=== PATIENT | female | born 1940 | race Caucasian/White ===

== ENCOUNTER 2022-03-16 13:28 | Outpatient (CLI) | payer MEDICARE, SELFPAY ==
[2022-03-16 15:03] LABS: Chloride* 99 mmol/L (96-114); Potassium* 4.7 mmol/L (3.6-5.1); Sodium* 135 mmol/L (135-149)
[2022-03-16 15:05] LABS: Creatinine* 0.9 mg/dL (0.5-1.5); Estimated Glomerular Filt Rate 64 ml/min
[2022-03-16 15:06] LABS: Blood Urea Nitrogen* 15 mg/dL (7-30); Calcium* 9.3 mg/dL (8.4-10.6); Carbon Dioxide* 30 mmol/L (20-32); Glucose* 97 mg/dL (60-115)
[2022-03-16 15:42] LABS: TSH With Reflex to FT4* < 0.015 uIU/mL (0.270-4.200)
[2022-03-16 16:19] LABS: Free T4 Free Thyroxine* 2.37 ng/dL (0.70-1.85)
== END 2022-03-16 13:29 | disposition home or self-care (01) ==
PROVIDERS: PCP Family Medicine; Visit Provider Family Medicine
DX: I10 Essential (primary) hypertension (principal); E03.9 Hypothyroidism, unspecified
CPT/HCPCS: 80048; 84439; 84443

== ENCOUNTER 2022-06-23 07:48 | Outpatient (CLI) | payer MEDICARE, SELFPAY ==
[2022-06-23 10:23] LABS: TSH With Reflex to FT4* < 0.015 uIU/mL (0.270-4.200)
[2022-06-23 10:51] LABS: Free T4 Free Thyroxine* 2.26 ng/dL (0.70-1.85)
== END 2022-06-23 07:49 | disposition home or self-care (01) ==
PROVIDERS: PCP Family Medicine; Visit Provider Family Medicine
DX: E03.9 Hypothyroidism, unspecified (principal)
CPT/HCPCS: 84439; 84443

== ENCOUNTER 2022-08-25 14:12 | Outpatient (CLI) | payer MEDICARE, SELFPAY | END 2022-08-25 14:13 | disposition home or self-care (01) | LOC: FRMREF 14:14 | PROVIDERS: PCP Family Medicine; Visit Provider Dermatology | DX: Z00.00 Encounter for general adult medical examination without abnormal findings (principal); I10 Essential (primary) hypertension; E03.9 Hypothyroidism, unspecified; Z51.81 Encounter for therapeutic drug level monitoring | CPT/HCPCS: 80053 ==

== ENCOUNTER 2022-09-11 13:10 | Outpatient (CLI) | payer MEDICARE, SELFPAY ==
--- NOTE | 2022-09-11 13:20 | CRLHL7_ITS ---
For Patients: As a result of the Century Cures Act, medical imaging exams and procedure reports are released immediately into your electronic medical record. You may view this report before your referring provider. If you have questions, please contact your health care provider. BILATERAL SCREENING MAMMOGRAM WITH COMPUTER-AIDED DETECTION TECHNIQUE: CC and MLO views were obtained. These mammographic images have been obtained using full-field digital technique. These mammographic images were interpreted with the benefit of computer-aided detection. COMPARISON FILM: 07/14/21, 03/07/20, 08/24/18. FINDINGS: There are scattered areas of fibroglandular density IMPRESSION: There is no radiographic evidence for malignancy. ASSESSMENT: BI-RADS Category 1: Negative RECOMMENDATION: Routine screening mammogram in 1 year. A lay language report of this examination will be provided to the patient. Gena Marcelino M.D. Diagnostic/Breast Radiologist [email or web address] Transcribed: 2:17 p.[email or web address] [email or web address]/Dictated by: Gena Marcelino MD @ 09/14/2022 8:25:00 AM (Electronically Signed)
== END 2022-09-11 13:11 | disposition home or self-care (01) ==
LOC: MAMMO 13:12
PROVIDERS: PCP Family Medicine; Visit Provider Registered Nurse
DX: Z12.31 Encounter for screening mammogram for malignant neoplasm of breast (principal)
CPT/HCPCS: 77067

== ENCOUNTER 2022-11-04 14:05 | Outpatient (CLI) | payer MEDICARE, SELFPAY | END 2022-11-04 14:06 | disposition home or self-care (01) | LOC: NFLDREF 11-05 00:43 | PROVIDERS: PCP Family Medicine; Referring Provider Family Medicine; Visit Provider Family Medicine | DX: E03.9 Hypothyroidism, unspecified (principal); I10 Essential (primary) hypertension | CPT/HCPCS: 80048; 84439; 84443 ==

== ENCOUNTER 2023-01-22 11:34 | Outpatient (CLI) | payer MEDICARE, SELFPAY | END 2023-01-22 11:35 | disposition home or self-care (01) | LOC: NFLDREF 01-24 07:49 | PROVIDERS: PCP Family Medicine; Referring Provider Family Medicine; Visit Provider Family Medicine | DX: E03.9 Hypothyroidism, unspecified (principal) | CPT/HCPCS: 84439; 84443 ==

== ENCOUNTER 2023-04-23 10:23 | Outpatient (CLI) | payer MEDICARE, SELFPAY | END 2023-04-23 10:24 | disposition home or self-care (01) | LOC: NFLDREF 04-26 06:28 | PROVIDERS: PCP Family Medicine; Referring Provider Family Medicine; Visit Provider Family Medicine | DX: E03.9 Hypothyroidism, unspecified (principal); I10 Essential (primary) hypertension | CPT/HCPCS: 80048; 84443 ==

== ENCOUNTER 2023-06-10 08:40 | Outpatient (CLI) | payer MEDICARE, SELFPAY | END 2023-06-10 08:41 | disposition home or self-care (01) | LOC: NFLDREF 06-14 12:09 | PROVIDERS: PCP Family Medicine; Referring Provider Family Medicine; Visit Provider Family Medicine | DX: E03.9 Hypothyroidism, unspecified (principal) | CPT/HCPCS: 84443 ==

== ENCOUNTER 2023-06-28 10:28 | Emergency (ER) | payer MEDICARE, SELFPAY ==
[2023-06-28 10:45] VITALS: BP 144/83; PULSE 67; TEMP 36.6; O2SAT 97; BMI 20.7
--- NOTE | 2023-06-28 13:12 | CRLHL7_ITS ---
For Patients: As a result of the Century Cures Act, medical imaging exams and procedure reports are released immediately into your electronic medical record. You may view this report before your referring provider. If you have questions, please contact your health care provider. INDICATION: Fall, head injury TECHNIQUE: CT head without contrast. COMPARISON: None. FINDINGS: CSF spaces: Within normal limits for age. Brain parenchyma: The ruiz-white differentiation is normal. No sign of mass, hemorrhage, or midline shift. Calcification of the basal ganglia. Mild low-density in the deep white matter. Old right cerebellar lacunar infarct. Skull base and calvarium: Mucosal thickening and patchy opacification paranasal sinuses. Atherosclerosis. The visualized orbits are grossly unremarkable. No skull fractures. IMPRESSION: 1. No calvarial fracture or intracranial bleed. 2. Nonspecific white matter disease, likely microangiopathy. 3. Old right cerebellar lacunar infarct. Please note that all CT scans at this facility use dose modulation, iterative reconstruction, and/or weight-based dosing when appropriate to reduce radiation dose to as low as reasonably achievable. Dictated by Kwesi Munoz MD @ 06/28/2023 2:22:37 PM (Electronically Signed)
--- NOTE | 2023-06-28 13:13 | CRLHL7_ITS ---
For Patients: As a result of the Cures Act, medical imaging exams and procedure reports are released immediately into your electronic medical record. You may view this report before your referring provider. If you have questions, please contact your health care provider. INDICATION: Fall, head injury TECHNIQUE: CT cervical spine without contrast. COMPARISON: None FINDINGS: Vertebrae: Alignment is normal. There are no fractures or suspicious bony lesions. Discs and facet joints: Facet hypertrophy C2-3 without significant stenosis. Facet hypertrophy C3-4 with disc space narrowing causing mild bilateral foraminal stenosis. Facet hypertrophy with posterior osteophytes and disc space narrowing at C4-5 causing mild left foraminal stenosis. Facet hypertrophy with posterior osteophytes and disc space narrowing at C5-6 causing moderate right foraminal stenosis. Facet hypertrophy with small posterior osteophytes that C6-7 causing mild bilateral foraminal stenosis. Facet hypertrophy C7-T1 without significant stenosis. Extraspinal findings: Mild apical pleural parenchymal scarring on the right. Atherosclerosis. IMPRESSION: Multilevel degenerative changes cervical spine without evidence of cervical spine fracture. Please note that all CT scans at this facility use dose modulation, iterative reconstruction, and/or weight-based dosing when appropriate to reduce radiation dose to as low as reasonably achievable. Dictated by Kwesi Munoz MD @ 06/28/2023 2:35:17 PM (Electronically Signed)
--- NOTE | 2023-06-28 13:13 | CRLHL7_ITS ---
For Patients: As a result of the Cures Act, medical imaging exams and procedure reports are released immediately into your electronic medical record. You may view this report before your referring provider. If you have questions, please contact your health care provider. Indication: Cough Technique: Chest 2 views Comparison: Chest x-ray 09/10/2022 Findings/Impression: Cardiovascular and mediastinum: Normal heart size with mild aortic tortuosity and atherosclerotic calcification. Lungs and pleural spaces: No pleural effusion or pneumothorax. Slight hazy opacity in the right mid lung suspicious for pneumonia including viral pneumonia. Bones and soft tissues: No significant findings. Dictated by Kwesi Munoz MD @ 06/28/2023 2:14:36 PM (Electronically Signed)
[2023-06-28] MEDS: 0.9 % SODIUM CHLORIDE 1000 ml 1,000 ML IV ×2 (13:30→15:14)
[2023-06-28 14:13] LABS: Basophils Absolute Auto 0.04 K/uL (0.00-0.30); Basophils Percent Auto 0.7 % (0.0-3.0); Eosinophils Absolute Auto 0.02 K/uL (0.00-0.50); Eosinophils Percent Auto 0.4 % (0.0-7.0); Hematocrit 41.4 % (33.0-51.0); Hemoglobin* 14.2 gm/dL (12.0-16.0); Lymphocytes Absolute Auto 2.26 K/uL (0.90-2.90); Lymphocytes Percent Auto 41.9 % (20-44); Mean Corpuscular HGB Conc 34 gm/dL (32-36); Mean Corpuscular Hemoglobin 32 pg (26-34); Mean Corpuscular Volume 93 fL (80-100); Monocytes Percent Auto 7.2 % (0.0-11.0); Neutrophils Absolute Auto 2.69 K/uL (1.7-7.0); Neutrophils Percent Auto 49.8 % (42.0-72.0); Platelet Count* 186 K/uL (140-440); RDW Coefficient of Variation % 12.3 % (11.5-15.5); Red Blood Count 4.46 m/uL (4.00-5.20)
[2023-06-28 14:19] LABS: Slide Review Reflex No
[2023-06-28 14:25] LABS: Troponin, Point-of-Care* 0.01 ng/ml (0.01-0.04)
[2023-06-28 14:30] LABS: Chloride* 100 mmol/L (96-114); Sodium* 133 mmol/L (135-149)
[2023-06-28 14:31] LABS: Potassium* 3.9 mmol/L (3.6-5.1)
--- NOTE | 2023-06-28 14:32 | ED.HEATRA ---
HPI - Head Injury General Date Seen: 06/28/23 Chief complaint: Head Injury/Pain Stated complaint: Fell yesterday, head injury, LoC Time Seen by Provider: 06/28/23 12:51 Source: patient Mode of arrival: ambulatory Limitations: no limitations History of Present Illness HPI Narrative: Patient is a very nice 83-year-old female who lives independently, was dropped off from a friend, she tested positive for influenza last week, and was feeling very weak, she actually passed out hit her head yesterday, and then thought she should come to the emergency room today or more appropriately her friends thought she should come here. She tells me she has slowly been improving, her weakness is improving her cough is been improving she has had no fevers for the last few days, and otherwise feels pretty good. She denies any nausea vomiting, any blood in her stools, and is eating more now than she was before. She did not take Tamiflu. Denies any shortness of breath, any chest pain, she has no headache really, she has no numbness and tingling weakness in the hands the feet and there is no neck pain associated with this she denies any visual changes. MD Complaint: head injury Related Data Home Medications Medication Instructions Recorded Confirmed calcium carbonate 200 mg calcium 200 mg PO BID 03/03/22 06/28/23 (500 mg) chewable tablet (Antacid (calcium carbonate)) cyanocobalamin (vitamin B-12) 250 250 mcg PO BID 03/03/22 06/28/23 mcg lozenges ergocalciferol (vitamin D2) 10 mcg 400 unit feeding tube DAILY 03/03/22 06/28/23 (400 unit) tablet omega-3 acid ethyl esters 1 gram 1 cap PO QDAY 03/03/22 06/28/23 capsule fluorouracil 5 % topical cream 1 applic topical BID PRN 11/04/22 06/28/23 triamcinolone acetonide 0.1 % 1 applic topical BID PRN 11/04/22 06/28/23 topical cream magnesium oxide 400 mg (241.3 mg 400 mg PO DAILY 04/27/23 06/28/23 magnesium) tablet Previous Rx's Medication Instructions Recorded estradiol 0.01% (0.1 mg/gram) 0.5 g vaginal 2XW #42.5 grams 09/03/22 vaginal cream (Estrace) amlodipine 2.5 mg tablet 2.5 mg PO QDAY #90 tabs 04/27/23 levothyroxine 75 mcg tablet 75 - 150 mcg (1 - 2 x 75 mcg) PO 06/20/23 QDAY #105 tabs amoxicillin 875 mg-potassium 1 tab PO BID #14 tabs 06/28/23 clavulanate 125 mg tablet Allergies Allergy/AdvReac Type Severity Reaction Status Date / Time No Known Drug Allergies Allergy Verified 06/28/23 10:45 Review of Systems Status of ROS: Reports: 10 or more systems reviewed and unremarkable except as noted in History and below [facility] Medical History Lyme disease ?A69.20 - Lyme disease, unspecified (ICD-10) Encounter for methotrexate monitoring ?Z51.81 - Encounter for therapeutic drug level monitoring (ICD-10) ?Z79.631 - [facility]PC (current) use of antimetabolite agent (ICD-10) Family History Father Diabetes Family/Other Diabetes Heart disease Social History What is your current living situation?: I presently have a place to live Problems where you live: declined to answer In the past 12 months, utilities in danger of being shut off: declined to answer In past 12 months, lack of transportation kept you from medical appts, meetings, work, or getting things needed for daily living: no In the past 12 mos, have been you worried that your food would run out before you had money to buy more?: never true In the past 12 mos, the food you bought just didn't last and you didn't have money to buy more?: never true Smoking Status: Never smoker Do you use any of these nicotine containing products: None How often do you have a drink containing alcohol: never How often do you have six or more drinks on one occasion: Never AUDIT-C Alcohol total score: 0 Non-prescribed substance use: denies use How often does anyone, including family, friends and others, physically hurt you: never How often does anyone, including family, friends and others, insult or talk down to you: never How often does anyone, including family, friends and others, threaten you with harm: never How often does anyone, including family, friends and others, scream or curse at you: never Little interest or pleasure in doing things: not at all Feeling down, depressed, or hopeless: not at all service: No Exam Narrative: Exam Narrative: She is seen in room 7 she is in no apparent distress, speaking to me normally her pupils equal round reactive to light there is no scleral icterus redness there is no nystagmus her TMs bilaterally are normal oropharynx is normal. On the upper occipital on the right side very small laceration of approximately 1-2 cm is not gaping, and is dried. No other depression is noted her cervical spine has no tenderness to palpation, range of motion seems good. There is no evidence of any problems with rotation. Chest is good air entry bilaterally with no wheezing crackles noted heart sounds are normal her abdomen is soft no guarding there is no organomegaly. 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 And a head CT look good in then when I cleaned upper head wound there is really nothing coming up part there, was more of a scratch type situation. She may also have a concussion we went over signs symptoms of worsening, and she will come back and be seen. I do want her to have a road test before she leaves however. Vital Signs Vital signs: Initial Vital Signs Temperature 97.8 F 06/28/23 10:45 Temperature Source Temporal Artery Scan 06/28/23 10:45 Pulse Rate 67 06/28/23 10:45 Pulse Rhythm Regular 06/28/23 10:45 Pulse Strength 3+ Normal 06/28/23 10:45 Blood Pressure 144/83 H 06/28/23 10:45 Blood Pressure Mean 103 06/28/23 10:45 Blood Pressure Position Sitting 06/28/23 10:45 Pulse Oximetry 97 06/28/23 10:45 Oxygen Delivery Method Room Air 06/28/23 10:45 Vital Signs Temperature 97.8 F 06/28/23 10:45 Pulse Rate 67 06/28/23 10:45 Blood Pressure 144/83 H 06/28/23 10:45 Pulse Oximetry 97 06/28/23 10:45 Oxygen Delivery Method Room Air 06/28/23 10:45 Temperature 97.8 F 06/28/23 10:45 Pulse Rate 67 06/28/23 10:45 Blood Pressure 144/83 H 06/28/23 10:45 Pulse Oximetry 97 06/28/23 10:45 Oxygen Delivery Method Room Air 06/28/23 10:45 Medications Administered Medications: Discontinued Medications Generic Name Dose Route Start Last Admin Trade Name Freq PRN Reason Stop Dose Admin Sodium Chloride 1,000 mls @ 1,000 mls/hr 06/28/23 13:15 06/28/23 15:13 0.9 % Sodium Chloride 1000 Ml IV 06/28/23 14:14 Infused .Q1H JOHN Infusion Sodium Chloride 1,000 mls @ 1,000 mls/hr 06/28/23 14:45 06/28/23 15:14 0.9 % Sodium Chloride 1000 Ml IV 06/28/23 15:44 1,000 mls/hr .Q1H JOHN Administration Lidocaine/Epinephrine/Tetracaine 3 ml 06/28/23 14:40 06/28/23 15:14 Lidocaine/Epinep/Tetracaine 3 Ml Gel..Ml. TOPICAL 06/28/23 14:41 3 ml ONCE ONE Administration MDM - Head Injury MDM Narrative Medical decision making narrative: Life-threatening differential diagnosis is considered include: Subarachnoid hemorrhage, subdural hemorrhage, epidural hemorrhage. Other differential diagnosis considered include concussion, closed head injury, or neck fracture. Life-threatening differential diagnosis considered include: Cardiac arrhythmia, acute blood loss, and intracranial bleed. Other differential diagnosis include but are not limited to vasovagal syncope, orthostatic syncope, seizure, as well as other etiologies Medical Records Attestation: I reviewed the patient's medical records. Lab Data Attestation: I reviewed the patient's lab results. Labs: Lab Results 06/28/23 06/28/23 Range/Units 13:13 13:40 WBC 5.40 (4.50-11.00) K/uL RBC 4.46 (4.00-5.20) m/uL Hgb 14.2 (12.0-16.0) gm/dL Hct 41.4 (33.0-51.0) % MCV 93 (80-100) fL MCH 32 (26-34) pg MCHC 34 (32-36) gm/dL RDW Coeff of Matthew 12.3 (11.5-15.5) % Plt Count 186 (140-440) K/uL Neut % (Auto) 49.8 (42.0-72.0) % Lymph % (Auto) 41.9 (20-44) % Williamson % (Auto) 7.2 (0.0-11.0) % Eos % (Auto) 0.4 (0.0-7.0) % Baso % (Auto) 0.7 (0.0-3.0) % Neut # (Auto) 2.69 (1.7-7.0) K/uL Lymph # (Auto) 2.26 (0.90-2.90) K/uL Williamson # (Auto) 0.40 (0.00-0.90) K/UL Eos # (Auto) 0.02 (0.00-0.50) K/uL Baso # (Auto) 0.04 (0.00-0.30) K/uL Abs Immat Gran (auto) 0.00 (0.00-0.30) K/uL Imm/Tot Granulo (auto) 0.0 % D-Dimer Quant (PE/DVT) 0.46 (0.00-0.50) ug/ml Sodium 133 L (135-149) mmol/L Potassium 3.9 (3.6-5.1) mmol/L Chloride 100 (96-114) mmol/L Carbon Dioxide 24 (20-32) mmol/L Anion Gap 9 (7-15) mEq/L BUN 16 (7-30) mg/dL Creatinine 0.7 (0.5-1.5) mg/dL Estimated Creat Clear 35.26 Estimated GFR 86 ml/min Glucose 113 (60-115) mg/dL Calcium 8.6 (8.4-10.6) mg/dL Lipase 162 (23-300) U/L POC Troponin I 0.01 (0.01-0.04) ng/ml Imaging Data CT scan - head: Radiologist's impression: Patient: ALEXANDR CROSS Facility:?[facility] Patient ID:?[id number] Site Patient ID:?[id number]. Site :?[id number] Study:?XRay Chest 2 VIEW-06/28/2023 1:59:13 PM Ordering Physician:Flip Mace Final Report: Indication: Cough Technique: Chest 2 views Comparison: Chest x-ray 09/10/2022 Findings/Impression: Cardiovascular and mediastinum: Normal heart size with mild aortic tortuosity and atherosclerotic calcification. Lungs and pleural spaces: No pleural effusion or pneumothorax. Slight hazy opacity in the right mid lung suspicious for pneumonia including viral pneumonia. Bones and soft tissues: No significant findings. Dictated by Kwesi Munoz MD @ 06/28/2023 2:14:36 PM (Electronic Signature) atient: ALEXANDR CROSS Facility:?[facility] Patient ID:?[id number] Site Patient ID:?[id number]. Site :?[id number] Study:?CT Spine Cervical -06/28/2023 1:57:43 PM Ordering Physician:Flip Mace Final Report: INDICATION: Fall, head injury TECHNIQUE: CT cervical spine without contrast. COMPARISON: None FINDINGS: Vertebrae: Alignment is normal. There are no fractures or suspicious bony lesions. Discs and facet joints: Facet hypertrophy C2-3 without significant stenosis. Facet hypertrophy C3-4 with disc space narrowing causing mild bilateral foraminal stenosis. Facet hypertrophy with posterior osteophytes and disc space narrowing at C4-5 causing mild left foraminal stenosis. Facet hypertrophy with posterior osteophytes and disc space narrowing at C5-6 causing moderate right foraminal stenosis. Facet hypertrophy with small posterior osteophytes that C6-7 causing mild bilateral foraminal stenosis. Facet hypertrophy C7-T1 without significant stenosis. Extraspinal findings: Mild apical pleural parenchymal scarring on the right. Atherosclerosis. IMPRESSION: Multilevel degenerative changes cervical spine without evidence of cervical spine fracture. Please note that all CT scans at this facility use dose modulation, iterative reconstruction, and/or weight-based dosing when appropriate to reduce radiation dose to as low as reasonably achievable. Dictated by Kwesi Munoz MD @ 06/28/2023 2:35:17 PM (Electronic Signature) Patient: ALEXANDR CROSS Facility:?[facility] Patient ID:?[id number] Site Patient ID:?[id number]. Site :?[id number] Study:?CT Head W/O-06/28/2023 1:57:19 PM Ordering Physician:Flip Mace Final Report: INDICATION: Fall, head injury TECHNIQUE: CT head without contrast. COMPARISON: None. FINDINGS: CSF spaces: Within normal limits for age. Brain parenchyma: The ruiz-white differentiation is normal. No sign of mass, hemorrhage, or midline shift. Calcification of the basal ganglia. Mild low-density in the deep white matter. Old right cerebellar lacunar infarct. Skull base and calvarium: Mucosal thickening and patchy opacification paranasal sinuses. Atherosclerosis. The visualized orbits are grossly unremarkable. No skull fractures. IMPRESSION: 1. No calvarial fracture or intracranial bleed. 2. Nonspecific white matter disease, likely microangiopathy. 3. Old right cerebellar lacunar infarct. Please note that all CT scans at this facility use dose modulation, iterative reconstruction, and/or weight-based dosing when appropriate to reduce radiation dose to as low as reasonably achievable. Dictated by Kwesi Munoz MD @ 06/28/2023 2:22:37 PM (Electronic Signature) ECG Data Attestation: I personally reviewed and interpreted this ECG as follows: ECG interpretation date: 06/28/23 Interpretation: EKG shows normal sinus rhythm, mild bradycardia noted at 56, no acute ST wave changes Discharge Plan Discharge Clinical Impression: Laceration, Head injury, Influenza, Pneumonia, Fall Patient Disposition: Home w/ Parent or Adult Condition: Stable Instructions: Influenza (DC), Fall Prevention for Older Adults (ED), Fall Prevention (ED), Pneumonia (ED), Head Laceration (ED) Additional Instructions: Home rest fluids and antibiotics as directed, return if signs and symptoms of worsening, light activity Activity Level: Light activity Prescriptions: New amoxicillin-pot clavulanate 875-125 mg tablet 1 tab PO BID Qty: 14 0RF No Action ergocalciferol (vitamin D2) 10 mcg (400 unit) tablet 400 unit feeding tube DAILY calcium carbonate [Antacid (calcium carbonate)] 200 mg calcium (500 mg) tablet,chewable 200 mg PO BID cyanocobalamin (vitamin B-12) 250 mcg lozenge 250 mcg PO BID omega-3 acid ethyl esters 1 gram capsule 1 cap PO QDAY triamcinolone acetonide 0.1 % cream 1 applic topical BID PRN Rx Instructions: Apply topically to affected area twice daily as needed. magnesium oxide 400 mg (241.3 mg magnesium) tablet 400 mg PO DAILY fluorouracil 5 % cream 1 applic topical BID PRN Rx Instructions: Apply topically to affected area one day per week. amlodipine 2.5 mg tablet 2.5 mg PO QDAY Qty: 90 3RF estradiol [Estrace] 0.01 % (0.1 mg/gram) cream 0.5 g vaginal 2XW Qty: 42.5 3RF Rx Instructions: Use nightly for 2 weeks, then twice weekly. May apply with finger. levothyroxine 75 mcg tablet 75 - 150 mcg PO QDAY Qty: 105 3RF Rx Instructions: Take 150mcg wednesday, and 75mcg all other days. Follow Up/Referrals: Sonido Hua MD [Primary Care Provider] - Stand Alone Forms: [employer] Info Instructions
[2023-06-28 14:33] LABS: Anion Gap 9 mEq/L (7-15); Carbon Dioxide* 24 mmol/L (20-32); Creatinine* 0.7 mg/dL (0.5-1.5); Est. Creatinine Clearance* 35.26; Estimated Glomerular Filt Rate 86 ml/min
[2023-06-28 14:34] LABS: Blood Urea Nitrogen* 16 mg/dL (7-30); Calcium* 8.6 mg/dL (8.4-10.6); Glucose* 113 mg/dL (60-115); Lipase* 162 U/L (23-300)
[2023-06-28 14:40] LABS: D Dimer Quantitative* 0.46 ug/ml (0.00-0.50)
[2023-06-28 15:06] VITALS: O2SAT 96
[2023-06-28 15:10] VITALS: O2SAT 96
[2023-06-28] MEDS: LIDOCAINE/EPINEP/TETRACAINE 3 ML GEL..ML. TOPICAL (15:14)
[2023-06-28 15:20] VITALS: O2SAT 97
== END 2023-06-28 17:17 | disposition home or self-care (01) ==
PROVIDERS: Emergency Provider Family Medicine; PCP Family Medicine
DX: J09.X2 Influenza due to identified novel influenza A virus with other respiratory manifestations (principal); J18.9 Pneumonia, unspecified organism; W19.XXXA Unspecified fall, initial encounter; S01.91XA Laceration without foreign body of unspecified part of head, initial encounter
CPT/HCPCS: 36415; 70450; 71046; 72125; 80048; 83690; 84484; 85025; 85379; 93005; 99284; 99285; J7030

== ENCOUNTER 2023-07-02 12:05 | Emergency (ER) | payer MEDICARE, SELFPAY ==
[2023-07-02 12:15] VITALS: BP 150/82; PULSE 123; RESP 16; TEMP 36.1; O2SAT 100; BMI 20.7
[2023-07-02 12:53] VITALS: BP 108/73; BP 130/81; BP 131/84; PULSE 60; PULSE 68; PULSE 71
[2023-07-02 13:09] LABS: Basophils Absolute Auto 0.05 K/uL (0.00-0.30); Basophils Percent Auto 0.7 % (0.0-3.0); Eosinophils Percent Auto 2.9 % (0.0-7.0); Hematocrit 41.3 % (33.0-51.0); Hemoglobin* 14.2 gm/dL (12.0-16.0); Immature Granulocytes Abs Auto 0.01 K/uL (0.00-0.30); Immature Granulocytes Pct Auto 0.1 %; Lymphocytes Absolute Auto 2.06 K/uL (0.90-2.90); Lymphocytes Percent Auto 30.2 % (20-44); Mean Corpuscular HGB Conc 34 gm/dL (32-36); Mean Corpuscular Hemoglobin 32 pg (26-34); Mean Corpuscular Volume 94 fL (80-100); Monocytes Percent Auto 8.6 % (0.0-11.0); Neutrophils Absolute Auto 3.92 K/uL (1.7-7.0); Neutrophils Percent Auto 57.5 % (42.0-72.0); Platelet Count* 254 K/uL (140-440); RDW Coefficient of Variation % 12.5 % (11.5-15.5); Red Blood Count 4.41 m/uL (4.00-5.20); White Blood Count* 6.83 K/uL (4.50-11.00)
[2023-07-02 13:11] LABS: Slide Review Reflex No
[2023-07-02 13:21] LABS: Chloride* 100 mmol/L (96-114)
[2023-07-02 13:22] LABS: Potassium* 4.4 mmol/L (3.6-5.1); Sodium* 134 mmol/L (135-149)
[2023-07-02 13:23] LABS: Albumin* 4.4 g/dL (3.3-5.0)
[2023-07-02 13:25] LABS: Anion Gap 7 mEq/L (7-15); Blood Urea Nitrogen* 14 mg/dL (7-30); Carbon Dioxide* 27 mmol/L (20-32); Est. Creatinine Clearance* 35.26; Estimated Glomerular Filt Rate 56 ml/min; Glucose* 115 mg/dL (60-115)
[2023-07-02 13:26] LABS: Alanine Aminotransferase* 14 U/L (4-35); Alkaline Phosphatase* 76 U/L (40-150); Aspartate Amino Transferase* 22 U/L (12-35); Bilirubin Direct* 0.3 mg/dL (0.0-0.5); Calcium* 9.3 mg/dL (8.4-10.6); Total Protein* 7.3 g/dL (6.0-8.3)
[2023-07-02 13:39] LABS: Troponin I* < 0.01 ng/mL (0.01-0.04)
[2023-07-02] MEDS: 0.9 % SODIUM CHLORIDE 1000 ml 1,000 ML IV (14:10)
--- NOTE | 2023-07-02 14:22 | ED_ITS ---
HPI - General Adult General Chief complaint: Weakness Stated complaint: Pneumonia, flu, lethargy Time Seen by Provider: 07/02/23 12:11 Source: patient Mode of arrival: ambulatory Limitations: no limitations History of Present Illness HPI narrative: 83-year-old female coming in today concerned about fatigue. Patient was recently diagnosed with influenza and pneumonia. She is on antibiotic treatment. She states that she has exhausted and she wants to sleep all day and all night. She has been eating a little bit during the day but certainly not as much as she should be. She denies diarrhea or urinary symptoms. No chest pain or abdominal discomfort. She is not short of breath at rest, she states she is mildly short of breath with exertion. She has been able to continue doing her daily activities. She was on a zoom meeting with her kids were concerned about how tired she was so she presented for evaluation. Related Data Home Medications Medication Instructions Recorded Confirmed calcium carbonate 200 mg calcium 200 mg PO BID 03/03/22 06/28/23 (500 mg) chewable tablet (Antacid (calcium carbonate)) cyanocobalamin (vitamin B-12) 250 250 mcg PO BID 03/03/22 06/28/23 mcg lozenges ergocalciferol (vitamin D2) 10 mcg 400 unit feeding tube DAILY 03/03/22 06/28/23 (400 unit) tablet omega-3 acid ethyl esters 1 gram 1 cap PO QDAY 03/03/22 06/28/23 capsule fluorouracil 5 % topical cream 1 applic topical BID PRN 11/04/22 06/28/23 triamcinolone acetonide 0.1 % 1 applic topical BID PRN 11/04/22 06/28/23 topical cream magnesium oxide 400 mg (241.3 mg 400 mg PO DAILY 04/27/23 06/28/23 magnesium) tablet Previous Rx's Medication Instructions Recorded estradiol 0.01% (0.1 mg/gram) 0.5 g vaginal 2XW #42.5 grams 09/03/22 vaginal cream (Estrace) amlodipine 2.5 mg tablet 2.5 mg PO QDAY #90 tabs 04/27/23 levothyroxine 75 mcg tablet 75 - 150 mcg (1 - 2 x 75 mcg) PO 06/20/23 QDAY #105 tabs amoxicillin 875 mg-potassium 1 tab PO BID #14 tabs 06/28/23 clavulanate 125 mg tablet Allergies Allergy/AdvReac Type Severity Reaction Status Date / Time No Known Drug Allergies Allergy Verified 07/02/23 12:18 Review of Systems Status of ROS: Reports: 10 or more systems reviewed and unremarkable except as noted in History and below [facility] Medical History Lyme disease ?A69.20 - Lyme disease, unspecified (ICD-10) Encounter for methotrexate monitoring ?Z51.81 - Encounter for therapeutic drug level monitoring (ICD-10) ?Z79.631 - half-way (current) use of antimetabolite agent (ICD-10) Family History Father Diabetes Family/Other Diabetes Heart disease Social History What is your current living situation?: I presently have a place to live Problems where you live: declined to answer In the past 12 months, utilities in danger of being shut off: declined to answer In past 12 months, lack of transportation kept you from medical appts, meetings, work, or getting things needed for daily living: no In the past 12 mos, have been you worried that your food would run out before you had money to buy more?: never true In the past 12 mos, the food you bought just didn't last and you didn't have money to buy more?: never true Smoking Status: Never smoker Do you use any of these nicotine containing products: None How often do you have a drink containing alcohol: never How often do you have six or more drinks on one occasion: Never AUDIT-C Alcohol total score: 0 Non-prescribed substance use: denies use How often does anyone, including family, friends and others, physically hurt you : never How often does anyone, including family, friends and others, insult or talk down to you: never How often does anyone, including family, friends and others, threaten you with harm: never How often does anyone, including family, friends and others, scream or curse at you: never Little interest or pleasure in doing things: not at all Feeling down, depressed, or hopeless: not at all service: No Exam Narrative: Exam Narrative: Well-nourished well-developed patient in no acute distress. Alert and oriented. Answers questions appropriately. Mood and affect are appropriate. Thoughts are goal oriented and rational. No tangential or magical thinking noted. Patient speaks in full sentences without needing to catch her breath. HEENT: Normocephalic atraumatic. Pupils are equally round reactive to light. Extraocular muscles are intact. Conjunctivae are moist without any icterus noted. Moist mucous membranes. Posterior pharynx is normal. Neck is soft without any lymphadenopathy or thyromegaly. No masses are appreciated. Cardiovascular: Heart is regular rate and rhythm S1 and S2 are present without any murmurs. Lungs: Clear to auscultation bilaterally no wheezes rhonchi or rales are appreciated. Patient takes deep breaths without any discomfort. Abdomen: Soft and nontender nondistended with normal bowel sounds. Delete the Extremities: Bilateral lower extremities are without edema. Normal DP and PT pulses. Skin: Well perfused without any obvious rashes. Const: Vital Signs, click to edit/add: Vital Signs - 24 hr 07/02/23 12:15 07/02/23 12:53 Temperature 97.0 F L Pulse Rate [Right Pulse Oximeter] 123 H Pulse Rate [orthos tatic lying Right Pulse Oximeter] 60 Pulse Rate [orthos tatic sitting Righ t Pulse Oximeter] 68 Pulse Rate [orthos tatic standing Rig ht Pulse Oximeter] 71 Respiratory Rate 16 Blood Pressure [Ri ght Upper Arm] 150/82 H Blood Pressure [or thostatic lying Ri ght Arm] 131/84 Blood Pressure [or thostatic sitting] 130/81 Blood Pressure [or thostatic standing Right Arm] 108/73 Pulse Oximetry 100 Oxygen Delivery Me thod Room Air Course Course ED Course: IV is established labs were drawn. EKG, read by me, shows normal sinus rhythm with a pulse of 63. Patient did have orthostatic hypotension with her systolic blood pressure going from 130 to 108 upon standing. No reported dizziness. L of fluid was given. Lab work was recheck, CBC, chemistries, LFTs, troponin unremarkable. Vital Signs Vital signs: Initial Vital Signs Temperature 97.0 F L 07/02/23 12:15 Temperature Source Temporal Artery Scan 07/02/23 12:15 Pulse Rate 123 H 07/02/23 12:15 Pulse Rhythm Regular 07/02/23 12:15 Pulse Strength 3+ Normal 07/02/23 12:15 Respiratory Rate 16 07/02/23 12:15 Blood Pressure 150/82 H 07/02/23 12:15 Blood Pressure Mean 104 07/02/23 12:15 Blood Pressure Position Sitting 07/02/23 12:15 Pulse Oximetry 100 07/02/23 12:15 Oxygen Delivery Method Room Air 07/02/23 12:15 Vital Signs Temperature 97.0 F L 07/02/23 12:15 Pulse Rate 123 H 07/02/23 12:15 Respiratory Rate 16 07/02/23 12:15 Blood Pressure 150/82 H 07/02/23 12:15 Pulse Oximetry 100 07/02/23 12:15 Oxygen Delivery Method Room Air 07/02/23 12:15 Temperature 97.0 F L 07/02/23 12:15 Pulse Rate 60 07/02/23 12:53 Respiratory Rate 16 07/02/23 12:15 Blood Pressure 131/84 07/02/23 12:53 Pulse Oximetry 100 07/02/23 12:15 Oxygen Delivery Method Room Air 07/02/23 12:15 Medical Decision Making MDM Narrative Medical decision making narrative: Elderly female with influenza and fatigue. We discussed the fatigue is common with influenza. We discussed she will likely feel fatigued for couple of weeks more. We discussed the importance of eating staying well hydrated resting when needed. We discussed reasons to return to the ER. Patient was in agreement had no other questions. Lab Data Labs: Lab Results 07/02/23 Range/Units 13:00 WBC 6.83 (4.50-11.00) K/uL RBC 4.41 (4.00-5.20) m/uL Hgb 14.2 (12.0-16.0) gm/dL Hct 41.3 (33.0-51.0) % MCV 94 (80-100) fL MCH 32 (26-34) pg MCHC 34 (32-36) gm/dL RDW Coeff of Matthew 12.5 (11.5-15.5) % Plt Count 254 (140-440) K/uL Neut % (Auto) 57.5 (42.0-72.0) % Lymph % (Auto) 30.2 (20-44) % Sandoval % (Auto) 8.6 (0.0-11.0) % Eos % (Auto) 2.9 (0.0-7.0) % Baso % (Auto) 0.7 (0.0-3.0) % Neut # (Auto) 3.92 (1.7-7.0) K/uL Lymph # (Auto) 2.06 (0.90-2.90) K/uL Sandoval # (Auto) 0.60 (0.00-0.90) K/UL Eos # (Auto) 0.20 (0.00-0.50) K/uL Baso # (Auto) 0.05 (0.00-0.30) K/uL Abs Immat Gran (auto) 0.01 (0.00-0.30) K/uL Imm/Tot Granulo (auto) 0.1 % Sodium 134 L (135-149) mmol/L Potassium 4.4 (3.6-5.1) mmol/L Chloride 100 (96-114) mmol/L Carbon Dioxide 27 (20-32) mmol/L Anion Gap 7 (7-15) mEq/L BUN 14 (7-30) mg/dL Creatinine 1.0 (0.5-1.5) mg/dL Estimated Creat Clear 35.26 Estimated GFR 56 ml/min Glucose 115 (60-115) mg/dL Calcium 9.3 (8.4-10.6) mg/dL Total Bilirubin 1.0 (0.1-1.5) mg/dL Direct Bilirubin 0.3 (0.0-0.5) mg/dL AST 22 (12-35) U/L ALT 14 (4-35) U/L Alkaline Phosphatase 76 (40-150) U/L Troponin I < 0.01 L (0.01-0.04) ng/mL Total Protein 7.3 (6.0-8.3) g/dL Albumin 4.4 (3.3-5.0) g/dL ECG Data Attestation: I personally reviewed and interpreted this ECG as follows: Discharge Plan Discharge Clinical Impression: Fatigue, Influenza Patient Disposition: Home, Self-Care Condition: Stable Additional Instructions: Rest as much as you need to. Make sure to stay well hydrated and eat nutritious meals. If you feel like you are getting worse instead of better return to the ER. Expect to have increased fatigue, sometimes up to several weeks. Prescriptions: No Action ergocalciferol (vitamin D2) 10 mcg (400 unit) tablet 400 unit feeding tube DAILY calcium carbonate [Antacid (calcium carbonate)] 200 mg calcium (500 mg) tablet,chewable 200 mg PO BID cyanocobalamin (vitamin B-12) 250 mcg lozenge 250 mcg PO BID omega-3 acid ethyl esters 1 gram capsule 1 cap PO QDAY triamcinolone acetonide 0.1 % cream 1 applic topical BID PRN Rx Instructions: Apply topically to affected area twice daily as needed. magnesium oxide 400 mg (241.3 mg magnesium) tablet 400 mg PO DAILY fluorouracil 5 % cream 1 applic topical BID PRN Rx Instructions: Apply topically to affected area one day per week. amlodipine 2.5 mg tablet 2.5 mg PO QDAY Qty: 90 3RF amoxicillin-pot clavulanate 875-125 mg tablet 1 tab PO BID Qty: 14 0RF estradiol [Estrace] 0.01 % (0.1 mg/gram) cream 0.5 g vaginal 2XW Qty: 42.5 3RF Rx Instructions: Use nightly for 2 weeks, then twice weekly. May apply with finger. levothyroxine 75 mcg tablet 75 - 150 mcg PO QDAY Qty: 105 3RF Rx Instructions: Take 150mcg wednesday, and 75mcg all other days. Follow Up/Referrals: Sonido Hua MD [Primary Care Provider] - Stand Alone Forms: [facility] Info Instructions
[2023-07-02 14:49] VITALS: BP 125/75; PULSE 74; RESP 16; O2SAT 100
== END 2023-07-02 14:51 | disposition home or self-care (01) ==
PROVIDERS: Emergency Provider Family Medicine; PCP Family Medicine
DX: R53.83 Other fatigue (principal); J10.1 Influenza due to other identified influenza virus with other respiratory manifestations
CPT/HCPCS: 36415; 80048; 80076; 84484; 85025; 93005; 99284; J7030

== ENCOUNTER 2024-07-06 07:30 | Outpatient (CLI) | payer MEDICARE, SELFPAY | END 2024-07-06 07:31 | disposition home or self-care (01) | LOC: NFLDREF 07-08 02:58 | PROVIDERS: PCP Family Medicine; Referring Provider Family Medicine; Visit Provider Family Medicine | DX: E03.9 Hypothyroidism, unspecified (principal); Z13.6 Encounter for screening for cardiovascular disorders | CPT/HCPCS: 80053; 80061; 84439; 84443 ==

== ENCOUNTER 2024-08-31 08:15 | Outpatient (RCR) | payer MEDICARE, SELFPAY ==
--- NOTE | 2024-08-21 11:38 | PT.OPEX ---
PT [facility] Outpatient Eval PT [facility] Outpatient Eval Start: 08/14/24 07:40 Freq: Status: Active Protocol: Document 08/21/24 09:51 ARR (Rec: 08/21/24 11:13 ARR [id number]) E-signed By Marry Quintanilla DPT Physical Therapy Outpatient Evaluation Insurance Information Recert Due Date 11/19/24 Insurance Name Medicare B,[employer] Medical Diagnosis M43.6 neck stiffness Treating Diagnosis M54.12 cervical radiculopathy M43.6 neck stiffness Referring MD Sonido Roca MD ([facility]) Subjective Subjective In the fall walks 3 miles per day. After the 2nd mile would have the onset of some neck numbing. Would go away when stopping walking. A few months later (2 mo ago) started getting weird feeling in the neck like a buzzing in a little spot that would come/go . DOesn?t seem to be triggered by anything. Can come on with sitting. Lying in bed. Is a weird feeling. Has cancelled many PT appt?s due to the fact it?s not pain but it?s persistent and annoying. Location of pain R sided UT and toward spine. This is the same spot that would irritate when she would walk. In the winter switched to swimming, no issues with pain during this. Last week went walking and caused symptoms to return ? but is more of a numbness. Without walking symptoms can come on and off without reason or correlated to activity. Does sit in front of a laptop for a few times a day. Will get symptoms daily: at best 30 % of the day and at worst 50% of the day. -Does a lot of exercise at home: yoga, pilates both in the evening. Notes in the AM the neck is stiff. Does have a specific pillow she uses that seems to help symptoms. -Was in PT maybe 6 years ago, was sent to PT. Met with a surgeon -Goals: get rid of symptoms with walking. PMHx: Lyme disease, RAD, acute bacterial brochontis, HTN, hypothyroidism Objective Other/Pertinent Objective Posture: sitting posture note inc?d fwd and rounded shoulders. R lateral shift likely secondary to underlying scoliosis. Loss of TS kyphosis. Loss of CS lordosis. Inc?d fwd had and rounded shoulders. R scapular winging. With fwd flexion noting inc?d posterior ribcage on R side. Palpation: inc?d cervical paraspinal muscle tension RANGE OF MOTION UE AROM (R/L): -ER0: 60 L / 70 R -Abd: 180 Bilat -FF: 180 bilat -Sidelying IR PROM: -MRE: fingertips to inferior angle on R, fingertips to mid scap on L -LRF: to superior angle of scap bilat. Needed assist on R . Cervical AROM: -Flx: 40 feeling stiffness on R -Ext: 60 -R Rot: 60 with pain on R -L Rot: 60 no symptom -R Sidebend: <!0 no pain -L Sidebend: <10 no pain Assessment Assessment/Impression Pt is a 84 y/o female who presents with concerns of N/T into R lateral neck/upper trap area. 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 Reproduction of concordant sign with cervical flexion and R rotation. Patient also has notable objective findings including DNF weakness, poor postural awareness, porfirio- scapular weakness, loss of thoracic and cervical spinal curves with underlying spinal scoliosis also likely contributing to the problem. Patient is a good candidate for skilled therapy to target deficits described above. Skilled PT intervention is necessary for use of therapeutic exercise manual therapy, neuromuscular re- education, gait training, and therapeutic activity. Functional impairments include difficulty with: walking, working on computer with symptoms extending into the day ranging from 30-50%. See appropriate sections of PT eval for complete list of goals and POC. D/C plan and criteria is for pt to achieve the goals as listed below or until max rehab potential is met. Pt was agreeable with plan of care and goals established. Plan of Care Rehabilitation Potential Good Physical Therapy Goals STG (within 3 visits) 1) Pt will initiate HEP without increased pain/ symptoms 2) Pt will tolerate progression to cervical strengthening including DNF without increased pain/ symptoms in order to show reduced tissue sensitivity LTG (within 6 visits) 1) Pt will be indep with HEP for alf management of pain/symptoms 2) Pt will demonstrate at least 60* cervical rotation AROM to the R without onset of symptoms for improved head turns when driving 3) Pt will report at least 80% improvement in pain/symptoms since start of PT for return to PLOF 4) Pt will demonstrate at least 40* of cervical flexion without onset of symptoms for improved ability to work on laptop 5) Pt will report ability to return to walking 3 miles without onset of symptoms Treatment Plan/Direct Interventions Electrical Stimulation,Joint Mobilization,Manual Therapy, Neuromuscular Re-ed,Self-Care/ Home Management,Therapeutic Activities,Therapeutic Exercises,Traction (Mechanical ) Frequency/Duration 1x/wk x 6 visits within 90 days Patient Will Be Discharged From Therapy Skills Plateau,Independent w/ HEP Evaluation Billing Untimed Code Treatment Minutes 30 Complexity Low Certification Information Initial Certification Date 08/21/24 Ending Certification Date 11/19/24 Provider Signature Required Yes Provider Signature Shows Agreement With POC & Medical Necessity Physician NPI Number Write NPI# Here Physician Comment/Change : Physician Signature & Date Requested Please Sign/Date Here
== END 2024-12-29 23:59 | disposition home or self-care (01) ==
PROVIDERS: PCP Family Medicine; Visit Provider Family Medicine
DX: M43.6 Torticollis (principal); M54.12 Radiculopathy, cervical region; Z51.89 Encounter for other specified aftercare
CPT/HCPCS: 97110; 97112; 97161; 97530

== ENCOUNTER 2024-09-04 09:15 | Outpatient (CLI) | payer MEDICARE, SELFPAY | END 2024-09-04 09:16 | disposition home or self-care (01) | LOC: NFLDREF 09-06 08:35 | PROVIDERS: PCP Family Medicine; Referring Provider Family Medicine; Visit Provider Family Medicine | DX: E03.9 Hypothyroidism, unspecified (principal) | CPT/HCPCS: 84443 ==

== ENCOUNTER 2024-09-08 09:02 | Emergency (ER) | payer MEDICARE, SELFPAY ==
--- OUTSIDE RECORDS SUMMARY | 2024-09-08 09:05 | XMS_ITS | Clinical Summary ---
Author Organization [facility] Address [address] [address] Phone Care Team Providers Care Drafter (Cad) Electronic Name Role Phone Elsewhere, Pcp Primary Care Provider Unavailabl e Allergies No known active allergies Medications omega-3 fatty acid (FISH OIL) 1000 MG capsule Take 1 Cap by mouth one time a day. 0 1 Active vitamin B-12 (CYANOCOBALAMIN ) 500 MCG tablet Take 1 Tab by mouth one time a day. 0 1 Active Multiple Minerals-Vitami ns (CALCIUM CITRATE +) TABS Take 1,000 mg by mouth one time a day. 1 Active triamcinolone acetonide (KENALOG) 0.5 % creamIndication s:Eczema Apply topically two times a day. Apply BID to rash x 2 weeks 2 Tube 2 1 Active Cholecalciferol (VITAMIN D) 400 UNIT Capsule Take 1 Cap by mouth one time a day. 3 Active amLODIPine (Norvasc) 2.5 MG tablet Take 2.5 mg by mouth one time a day. 4 Active levothyroxine (Synthroid) 75 MCG tablet Take 75 mcg by mouth one time a day. Active NEW DRUG Take 4 Each by mouth one time a day. 4 Active Active Problems Patient Care Coordination No te Formatting of this note migh t be different from the original. ACO diagnosis review please. 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 Hypothyroidism, iatrogenic 05/25/2012 Resolved Problems Problem Noted Date Diagnosed Date Resolved Date Tick bite of left thigh 12/17/202311/22 Immunizations Name Administration Dates Next Due COVID-19 MRNA Vaccine (Moder na) 12+ Yrs Seasonal 02/23/2023 COVID-19 mRNA Vaccine (Moder na - 18+ Yrs) 08/22/2021,03/19/2021,07/14/2020,2020 COVID-19 mRNA Vaccine Bivale nt (Moderna) 01/31/2022 Influenza High Dose Quadrivalent 02/23/2023,01/22 Influenza Quad Preservative Free 2020 Influenza Quad Recombinant Preservative Free (Flublok) 03/10/2019 Influenza Trivalent Adjuvant ed Preservative Free (Fluad) 04/04/2018 Influenza Trivalent Preservative Free 03/17/2015 ,03/06/2014 Influenza Trivalent Preserva tive Free (High Dose) 03/02/2017 Influenza Trivalent With Preservative ,03/22/2013,03/01/2012,2010 Pneumococcal Conjugate, (Prevnar)13-valent 04/25/2015 Pneumovax 23 06/02/2012 Respiratory Syncytial Virus (RSV) Bivalent Vaccine (Abrysvo) 04/27/2023 Tdap (7 years and older) 11/25/2022,05/01/2014 Zoster Shingrix 2 Dose (Shingles) 01/01/2020,02/2020 Zoster Zostavax (Shingles) 03/01/2012 Medical History Medical History Date Comments Atypical chest pain 12/17/2023 Dermatitis 05/25/2012 Goiter, 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 Hypothyroidism, iatrogenic 05/25/2012 Tick bite of left thigh 12/17/2023 Social History Tobacco Use Types Packs/Day Years Used Date Smoking Tobacco: Never Passive Smoke Exposure: Past Smokeless Tobacco: Never Tobacco Cessation:Counseling Given: Not Answered Comments:1st smoked Alcohol Use Standard Drinks/Week Comments Yes 3.3 (1 standard drink = 0.6 oz p ure alcohol) PHQ-2 Answer Date Recorded PHQ-2 Total 0 01/31/2024 Comments No Sex and Gender Information Value Date Recorded Sex Assigned at Not on file Legal Sex Female 5:26 AM WEIGHT [employer] Gender Identity Not on file Sexual Orientation Not on file Obstetrics History Last Filed Vital Signs Vital Sign Reading Time Taken Comments Blood Pressure 126/54 01/31/2024 4:03 PM CDT Pulse 63 01/31/2024 4:03 PM CDT Temperature 35.4 C (95.7 F) 01/31/2024 4:03 PM CDT Respiratory Rate 20 01/31/2024 4:03 PM CDT Oxygen Saturation 97% 01/31/2024 4:03 PM CDT Inhaled Oxygen Concentration - - Weight 55 kg (121 lb 4.1 oz) 01/31/2024 4:03 PM CDT Height 157.2 cm (5' 1.9) 02/16/2018 9:18 AM CDT Body Mass Index 22.25 02/16/2018 9:18 AM CDT Plan of Treatment Health Maintenance Due Date Last Done Comments MEDICARE AWV 1940 DXA,FEMALES AGE 65 OR GREATER 02/21/2005 COVID-19 Vaccine ( season) 2024 02/23/2023, 01/31/2022, 08/22/2021, Additional history exists Influenza Vaccine Seasonal (Standing Order) (#1) 2024 02/23/2023, 01/31/2022, 02/21/2021, Additional history exists TETANUS (Standing Order) 11/25/2032 11/25/2022, 12/01/2014 Pneumococcal Vaccine: 50+ yrs (Standing Order) Completed 04/25/2015, 06/02/2012 Shingrix (Zoster recombinant) vaccine (Standing Order) Completed 01/01/2020, 07/03/2019 PERTUSSIS (Standing Order) Completed 11/25/2022, RSV Vaccination (60+ yrs) (Abrysvo/Arexvy) Completed 04/27/2023 HPV Vaccine (Standing Order) Aged Out No longer eligible based on patient's age to complete this topic Hepatitis B Vaccine (Standing Order) Aged Out No longer eligible based on patient's age to complete this topic Insurance [facility] MEDICARE PLANS Care Teams Drafter (Cad) Electronic Relationship Specialty Start Date End Date Elsewhere, Pcp PCP - General 02/17/11
[2024-09-08 09:10] VITALS: BP 136/90; PULSE 68; RESP 16; TEMP 36.3; O2SAT 96; BMI 20.9
--- NOTE | 2024-09-08 09:26 | ED_ITS ---
HPI - General Adult General Chief complaint: Headache/Migraine Stated complaint: came from - chills, fever and numbness on arm Time Seen by Provider: 09/08/24 09:22 History of Present Illness HPI narrative: Patient reports two days of headache and chills. Also reports a numbness in her right arm that went into face . This was a very short time . Headache is not present now . She states that she had felt find the pat two mornings and that headache would appear as day wore on. 84-year-old woman presenting to the emergency department with concern of headache and chills. Apparently presented to urgent care and more alarming was a numbness that occurred throughout her entire left arm while she was experiencing the headache that lasted few hours. She describes a frontal headache. She had gone swimming which is her usual practice yesterday without any difficulty and subsequently again in the evening began feeling the symptoms of headache. She never had any weakness but could not say whether not her left arm was weak during the time of this headache though suspected she would not have been able to move it. Maybe lasted 2-3 minutes. Did not tested perhaps since she has had similar symptoms before. Did not measure a fever but again just chills. Just does not feel well at this point. No cough or rhinorrhea. No urinary tract symptoms. Apparently with headaches in the past which she does not have frequently, rarely actually, she has experienced numbness in the arm. Later also reveals that over the last couple of weeks has seen physical therapy for a strange intermittent tingling that has been occurring as demonstrated at the right base of her posterior neck to trapezial area Related Data Home Medications ?Medication ?Instructions ?Recorded ?Confirmed calcium carbonate (Antacid 200 mg PO BID 03/03/22 07/10/24 (calcium carbonate)) ergocalciferol (vitamin D2) 10 mcg 400 unit feeding tube DAILY 03/03/22 07/10/24 (400 unit) tablet omega-3 acid ethyl esters 1 gram 1 cap PO QDAY 03/03/22 07/10/24 capsule magnesium oxide 400 mg (241.3 mg 400 mg PO DAILY 04/27/23 07/10/24 magnesium) tablet cyanocobalamin (vitamin B-12) 250 250 mcg PO .QD 06/12/24 07/10/24 mcg lozenges Previous Rx's ?Medication ?Instructions ?Recorded amlodipine 2.5 mg tablet 2.5 mg PO QDAY #90 tabs 07/10/24 estradiol 0.01% (0.1 mg/gram) 0.5 g vaginal 2XW #42.5 grams 07/10/24 vaginal cream (Estrace) levothyroxine 75 mcg tablet 75 - 150 mcg (1 - 2 x 75 mcg) PO 07/10/24 QDAY #118 tabs Allergies Allergy/AdvReac Type Severity Reaction Status Date / Time No Known Drug Allergies Allergy Verified 09/08/24 11:36 Review of Systems Status of ROS: Reports: 6 or more systems reviewed and unremarkable except as noted in History and below [facility] Medical History Lyme disease ?A69.20 - Lyme disease, unspecified (ICD-10) Encounter for methotrexate monitoring ?Z51.81 - Encounter for therapeutic drug level monitoring (ICD-10) ?Z79.631 - long term care phlebotomist (current) use of antimetabolite agent (ICD-10) Family History Father Diabetes Family/Other Diabetes Heart disease Social History What is your current living situation?: I presently have a place to live Problems where you live: declined to answer In the past 12 months, utilities in danger of being shut off: no In past 12 months, lack of transportation kept you from medical appts, meetings, work, or getting things needed for daily living: no In the past 12 mos, have been you worried that your food would run out before you had money to buy more?: never true In the past 12 mos, the food you bought just didn't last and you didn't have money to buy more?: never true Smoking Status: Never smoker Do you use any of these nicotine containing products: None How often do you have a drink containing alcohol: never How often do you have six or more drinks on one occasion: Never AUDIT-C Alcohol total score: 0 Non-prescribed substance use: denies use How often does anyone, including family, friends and others, physically hurt you : never How often does anyone, including family, friends and others, insult or talk down to you: never How often does anyone, including family, friends and others, threaten you with harm: never How often does anyone, including family, friends and others, scream or curse at you: never service: No Exam Narrative: Exam Narrative: Pleasant. NAD but appears rather tired and just like she does not feel well. Moving all extremities without difficulty. Cranial nerves 2-12 intact. Pupils are 3 mm and equal and briskly reactive. Extraocular movements are full without nystagmus. Neck is supple. Lungs are clear. Heart with some ectopic beats. Stroke scale would be 0 Const: Vital Signs, click to edit/add: Vital Signs - 24 hr 09/08/24 09:10 09/08/24 11:24 09/08/24 13:47 Temperature 97.4 F L Pulse Rate [Pulse Oximeter] 68 65 85 Respiratory Rate 16 20 16 Blood Pressure [Ri ght Upper Arm] 136/90 H 141/67 H 187/92 H Pulse Oximetry 96 96 97 Oxygen Delivery Me thod Room Air Room Air Documenting provider has reviewed patient's vital signs: yes Course Vital Signs Vital signs: Initial Vital Signs Temperature 97.4 F L 09/08/24 09:10 Temperature Source Temporal Artery Scan 09/08/24 09:10 Pulse Rate 68 09/08/24 09:10 Respiratory Rate 16 09/08/24 09:10 Blood Pressure 136/90 H 09/08/24 09:10 Blood Pressure Mean 105 09/08/24 09:10 Pulse Oximetry 96 09/08/24 09:10 Oxygen Delivery Method Room Air 09/08/24 09:10 Vital Signs Temperature 97.4 F L 09/08/24 09:10 Pulse Rate 68 09/08/24 09:10 Respiratory Rate 16 09/08/24 09:10 Blood Pressure 136/90 H 09/08/24 09:10 Pulse Oximetry 96 09/08/24 09:10 Oxygen Delivery Method Room Air 09/08/24 09:10 Temperature 97.4 F L 09/08/24 09:10 Pulse Rate 85 09/08/24 13:47 Respiratory Rate 16 09/08/24 13:47 Blood Pressure 187/92 H 09/08/24 13:47 Pulse Oximetry 97 09/08/24 13:47 Oxygen Delivery Method Room Air 09/08/24 13:47 Medications Administered Medications: Discontinued Medications Generic Name Dose Route Start Last Admin Trade Name Oumou PRN Reason Stop Dose Admin Aspirin 325 mg 09/08/24 13:44 09/08/24 14:01 Aspirin Ec 325 Mg Tablet PO 09/08/24 13:45 325 mg DAILY ONE Administration Atorvastatin Calcium 40 mg 09/08/24 14:10 09/08/24 14:38 Atorvastatin Calcium 40 Mg Tablet PO 09/08/24 14:11 40 mg ONCE ONE Administration Clopidogrel Bisulfate 300 mg 09/08/24 13:43 09/08/24 14:01 Clopidogrel 300 Mg Tablet PO 09/08/24 13:44 300 mg ONCE ONE Administration Sodium Chloride 500 mls @ 500 mls/hr 09/08/24 10:37 09/08/24 12:25 0.9 % Sodium Chloride 500 Ml IV 09/08/24 11:36 Infused .Q1H ONE Infusion Medical Decision Making MDM Narrative Medical decision making narrative: Perhaps if was just an isolated paresthesia as described might pass this off related to just a headache but recurrence makes one wonder about a vascular lesion or TIA perhaps. I am not sure what to make of the tingling she describes at the lower neck. Does not have reproducible symptoms into her arms from manipulation of/rotation of the neck or compression. I did reach out to Stroke Neuro for best test since she is here. Would recommend CT vascular studies of head and neck. telemetry monitor Otherwise pending swabs for COVID and influenza. Community prevalence as seen more COVID lately with similar symptoms. Images independently reviewed by me without acute abnormality. Radiology over- read however noting concerning degree of stenosis in the right carotid. This would correlate with as described left-sided symptoms I would think. Stroke Neuro has reviewed images as well and recommending transport for further evaluation/cares. Concerning in particular is the ulcerative nature of the plaque as described. Discussed recommendations and all findings with Ms. Alegria and her daughter. Have also discussed with hospitalist at [facility] who is accepting. Treating with aspirin, Plavix and statin. Pending transport. INDICATION: Recurrent transient left arm numbness, weakness, chills, headache. TECHNIQUE: CTA neck with contrast bolus tracking, 3D angiographic rendering using maximum intensity projection (MIP) and images permanently archived. FINDINGS: There is carotid atherosclerosis bilaterally. There is an ulcerated plaque at the origin of the right ICA that results in a severe stenosis, 80-90% by NASCET. There is heavily calcified plaque in the proximal left ICA that results in a mild stenosis, less than 50% by NASCET. There is no significant vertebral artery stenosis or dissection. The soft tissues of the neck are within normal limits. Degenerative changes are noted in the cervical spine. IMPRESSION: 1. Severe right ICA origin stenosis, 80-90% by NASCET, due to ulcerated plaque. 2. Mild proximal left ICA stenosis, less than 50% by NASCET. Please note that all CT scans at this facility use dose modulation, iterative reconstruction, and/or weight-based dosing when appropriate to reduce radiation dose to as low as reasonably achievable. Dictated by John Young MD @ 09/08/2024 12:25:51 PM INDICATION: Recurrent transient left arm numbness, weakness, chills, headache. TECHNIQUE: CTA head with contrast bolus tracking, 3D angiographic rendering using maximum intensity projection (MIP) and images permanently archived. FINDINGS: There is scattered intracranial atherosclerotic disease. There is normal opacification of the intracranial vasculature. There is no large vessel occlusion. No aneurysm is identified. IMPRESSION: No large vessel occlusion or significant intracranial stenosis. Please note that all CT scans at this facility use dose modulation, iterative reconstruction, and/or weight-based dosing when appropriate to reduce radiation dose to as low as reasonably achievable. Dictated by John Young MD @ 09/08/2024 12:27:46 PM Technique: Volumetric multidetector CT images of the head were obtained without the administration of low osmolar intravenous contrast. Comparison: CT head June 28, 2023 Findings: There is no intra-axial or extra-axial fluid collection. There is no mass effect or midline shift. There is age-related cortical atrophy with mild sulcal widening and ex vacuo dilatation of the lateral ventricles. Old lacunar changes of the right greater than left cerebellum is appreciated with moderate chronic small vessel disease change of the subcortical and periventricular white matter. Otherwise, the brain parenchyma is preserved in attenuation and ruiz-white differentiation. Stable basal ganglia calcifications. The orbits and their contents are grossly within normal limits. The bony calvarium is grossly intact. The paranasal sinuses are clear. The mastoid air cells are well aerated. Impression: Stable age-related, chronic small vessel disease and remote ischemic changes of the brain without evidence of new acute intracranial abnormality. Please note that all CT scans at this facility use dose modulation, iterative reconstruction, and/or weight-based dosing when appropriate to reduce radiation dose to as low as reasonably achievable. Dictated by James Mancuso MD @ 09/08/2024 11:49:12 AM Medical Records Medical records reviewed: Yes I reviewed the patient's medical records Lab Data Lab results reviewed: Yes I reviewed the patient's lab results Labs: Lab Results 09/08/24 09/08/24 09/08/24 Range/Units 09:20 10:44 10:50 WBC 6.16 (4.50-11.00) K/uL RBC 4.47 (4.00-5.20) m/uL Hgb 14.1 (12.0-16.0) gm/dL Hct 42.5 (33.0-51.0) % MCV 95 (80-100) fL MCH 32 (26-34) pg MCHC 33 (32-36) gm/dL RDW Coeff of Matthew 13.1 (11.5-15.5) % Plt Count 233 (140-440) K/uL Neut % (Auto) 51.1 (42.0-72.0) % Lymph % (Auto) 35.2 (20-44) % [place] % (Auto) 8.0 (0.0-11.0) % Eos % (Auto) 4.2 (0.0-7.0) % Baso % (Auto) 1.5 (0.0-3.0) % Neut # (Auto) 3.15 (1.7-7.0) K/uL Lymph # (Auto) 2.17 (0.90-2.90) K/uL [place] # (Auto) 0.50 (0.00-0.90) K/UL Eos # (Auto) 0.26 (0.00-0.50) K/uL Baso # (Auto) 0.09 (0.00-0.30) K/uL Abs Immat Gran (auto) 0.00 (0.00-0.30) K/uL Imm/Tot Granulo (auto) 0.0 % Sodium 137 (135-149) mmol/L Potassium 3.8 (3.6-5.1) mmol/L Chloride 99 (96-114) mmol/L Carbon Dioxide 27 (20-32) mmol/L Anion Gap 11 (7-15) mEq/L BUN 14 (7-30) mg/dL Creatinine 0.9 (0.5-1.5) mg/dL Estimated Creat Clear 36.16 Estimated GFR 63 ml/min Glucose 83 (60-115) mg/dL Calcium 9.4 (8.4-10.6) mg/dL SARS-CoV-2 (PCR) Negative SARS-CoV-2 (Negative) Influenza Type A (PCR) Negative PCR FLU A (Negative) Influenza Type B (PCR) Negative PCR FLU B (Negative) RSV (PCR) Negative PCR RSV (Negative) POC Creatinine 0.9 (0.6-1.3) mg/dl ECG Data Attestation: I personally reviewed and interpreted this ECG as follows: (Normal sinus rhythm rate of 62) Discharge Plan Discharge Clinical Impression: Paresthesia, Carotid artery stenosis Patient Disposition: Xfer [facility] Discharge Location: [facility] Condition: Stable Prescriptions: No Action ergocalciferol (vitamin D2) 10 mcg (400 unit) tablet 400 unit feeding tube DAILY calcium carbonate [Antacid (calcium carbonate)] 200 mg calcium (500 mg) tablet,chewable 200 mg PO BID omega-3 acid ethyl esters 1 gram capsule 1 cap PO QDAY magnesium oxide 400 mg (241.3 mg magnesium) tablet 400 mg PO DAILY cyanocobalamin (vitamin B-12) 250 mcg lozenge 250 mcg PO .QD levothyroxine 75 mcg tablet 75 - 150 mcg PO QDAY Qty: 118 3RF Rx Instructions: Take 150mcg Mon and Thurs, and 75mcg all other days. amlodipine 2.5 mg tablet 2.5 mg PO QDAY Qty: 90 3RF estradiol [Estrace] 0.01 % (0.1 mg/gram) cream 0.5 g vaginal 2XW Qty: 42.5 3RF Rx Instructions: Use nightly for 2 weeks, then twice weekly. May apply with finger. Stand Alone Forms: [facility] Info Instructions
[2024-09-08 10:08] LABS: PCR FLU A Negative PCR FLU A (Negative); PCR FLU B Negative PCR FLU B (Negative); PCR RSV Negative PCR RSV (Negative); SARS PCR* Negative SARS-CoV-2 (Negative)
--- OUTSIDE RECORDS SUMMARY | 2024-09-08 10:09 | XMS_ITS | Clinical Summary ---
Author Organization [facility] Address [address] [address] Phone Care Team Providers Care Claim Specialist Name Role Phone Elsewhere, Pcp Primary Care [...] ACO diagnosis review please. 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
--- NOTE | 2024-09-08 10:38 | CRLHL7_ITS ---
For Patients: As a result of the Century Cures Act, medical imaging exams and procedure reports are released immediately into your electronic medical record. You may view this report before your referring provider. If you have questions, please contact your health care provider. INDICATION: Recurrent transient left arm numbness, weakness, chills, headache. TECHNIQUE: CTA head with contrast bolus tracking, 3D angiographic rendering using maximum intensity projection (MIP) and images permanently archived. FINDINGS: There is scattered intracranial atherosclerotic disease. There is normal opacification of the intracranial vasculature. There is no large vessel occlusion. No aneurysm is identified. IMPRESSION: No large vessel occlusion or significant intracranial stenosis. Please note that all CT scans at this facility use dose modulation, iterative reconstruction, and/or weight-based dosing when appropriate to reduce radiation dose to as low as reasonably achievable. Dictated by John Young MD @ 09/08/2024 12:27:46 PM (Electronically Signed)
--- NOTE | 2024-09-08 10:38 | CRLHL7_ITS ---
For Patients: As a result of the Century Cures Act, medical imaging exams and procedure reports are released immediately into your electronic medical record. You may view this report before your referring provider. If you have questions, please contact your health care provider. INDICATION: Recurrent transient left arm numbness, weakness, chills, headache. TECHNIQUE: CTA neck with contrast bolus tracking, 3D angiographic rendering using maximum intensity projection (MIP) and images permanently archived. FINDINGS: There is carotid atherosclerosis bilaterally. There is an ulcerated plaque at the origin of the right ICA that results in a severe stenosis, 80-90% by NASCET. There is heavily calcified plaque in the proximal left ICA that results in a mild stenosis, less than 50% by NASCET. There is no significant vertebral artery stenosis or dissection. The soft tissues of the neck are within normal limits. Degenerative changes are noted in the cervical spine. IMPRESSION: 1. Severe right ICA origin stenosis, 80-90% by NASCET, due to ulcerated plaque. 2. Mild proximal left ICA stenosis, less than 50% by NASCET. Please note that all CT scans at this facility use dose modulation, iterative reconstruction, and/or weight-based dosing when appropriate to reduce radiation dose to as low as reasonably achievable. Dictated by John oYung MD @ 09/08/2024 12:25:51 PM (Electronically Signed)
--- NOTE | 2024-09-08 10:38 | CRLHL7_ITS ---
For Patients: As a result of the Century Cures Act, medical imaging exams and procedure reports are released immediately into your electronic medical record. You may view this report before your referring provider. If you have questions, please contact your health care provider. Indication: Transient left arm numbness, possible weakness chills and headache Technique: Volumetric multidetector CT images of the head were obtained without the administration of low osmolar intravenous contrast. Comparison: CT head June 28, 2023 Findings: There is no intra-axial or extra-axial fluid collection. There is no mass effect or midline shift. There is age-related cortical atrophy with mild sulcal widening and ex vacuo dilatation of the lateral ventricles. Old lacunar changes of the right greater than left cerebellum is appreciated with moderate chronic small vessel disease change of the subcortical and periventricular white matter. Otherwise, the brain parenchyma is preserved in attenuation and ruiz-white differentiation. Stable basal ganglia calcifications. The orbits and their contents are grossly within normal limits. The bony calvarium is grossly intact. The paranasal sinuses are clear. The mastoid air cells are well aerated. Impression: Stable age-related, chronic small vessel disease and remote ischemic changes of the brain without evidence of new acute intracranial abnormality. Please note that all CT scans at this facility use dose modulation, iterative reconstruction, and/or weight-based dosing when appropriate to reduce radiation dose to as low as reasonably achievable. Dictated by James Mancuso MD @ 09/08/2024 11:49:12 AM (Electronically Signed)
[2024-09-08 10:59] LABS: Creatinine, Point-of-Care* 0.9 mg/dl (0.6-1.3)
[2024-09-08 11:24] VITALS: BP 141/67; PULSE 65; RESP 20; O2SAT 96
[2024-09-08] MEDS: 0.9 % SODIUM CHLORIDE 500 ML 500 ML IV (11:28)
[2024-09-08 13:47] VITALS: BP 187/92; PULSE 85; RESP 16; O2SAT 97
[2024-09-08 13:58] LABS: Basophils Absolute Auto 0.09 K/uL (0.00-0.30); Basophils Percent Auto 1.5 % (0.0-3.0); Eosinophils Absolute Auto 0.26 K/uL (0.00-0.50); Eosinophils Percent Auto 4.2 % (0.0-7.0); Hematocrit 42.5 % (33.0-51.0); Hemoglobin* 14.1 gm/dL (12.0-16.0); Lymphocytes Absolute Auto 2.17 K/uL (0.90-2.90); Lymphocytes Percent Auto 35.2 % (20-44); Mean Corpuscular HGB Conc 33 gm/dL (32-36); Mean Corpuscular Hemoglobin 32 pg (26-34); Mean Corpuscular Volume 95 fL (80-100); Neutrophils Absolute Auto 3.15 K/uL (1.7-7.0); Neutrophils Percent Auto 51.1 % (42.0-72.0); Platelet Count* 233 K/uL (140-440); RDW Coefficient of Variation % 13.1 % (11.5-15.5); Red Blood Count 4.47 m/uL (4.00-5.20); White Blood Count* 6.16 K/uL (4.50-11.00)
[2024-09-08 13:59] LABS: Slide Review Reflex No
[2024-09-08] MEDS: ASPIRIN EC 325 MG TABLET PO (14:01)
[2024-09-08] MEDS: CLOPIDOGREL 300 MG TABLET PO (14:01)
[2024-09-08 14:11] LABS: Chloride* 99 mmol/L (96-114); Potassium* 3.8 mmol/L (3.6-5.1); Sodium* 137 mmol/L (135-149)
[2024-09-08 14:14] LABS: Anion Gap 11 mEq/L (7-15); Blood Urea Nitrogen* 14 mg/dL (7-30); Carbon Dioxide* 27 mmol/L (20-32); Creatinine* 0.9 mg/dL (0.5-1.5); Est. Creatinine Clearance* 36.16; Estimated Glomerular Filt Rate 63 ml/min
[2024-09-08 14:15] LABS: Calcium* 9.4 mg/dL (8.4-10.6); Glucose* 83 mg/dL (60-115)
[2024-09-08] MEDS: ATORVASTATIN CALCIUM 40 MG TABLET PO (14:38)
[2024-09-08 17:00] VITALS: BP 147/98; PULSE 92; RESP 18; O2SAT 97
[2024-09-08 19:24] VITALS: BP 156/96; PULSE 99; RESP 18; O2SAT 96
== END 2024-09-08 22:21 | disposition short-term general hospital (02) ==
PROVIDERS: Family Medicine; Emergency Provider Emergency Medicine; PCP Family Medicine
DX: R20.2 Paresthesia of skin (principal); I65.21 Occlusion and stenosis of right carotid artery
CPT/HCPCS: 36415; 70450; 70496; 70498; 80048; 82565; 85025; 87631; 93005; 96360; 99284; 99285; A9270; J7030; Q9967

== ENCOUNTER 2024-09-08 22:11 | Outpatient (CLI) | payer MEDICARE, SELFPAY | END 2024-09-08 22:12 | disposition home or self-care (01) | LOC: AMB 09-11 11:17 | PROVIDERS: PCP Family Medicine; Visit Provider Emergency Medicine | DX: I65.23 Occlusion and stenosis of bilateral carotid arteries (principal); R20.2 Paresthesia of skin | CPT/HCPCS: A0425; A0427 ==